=== PATIENT | male | born 1960 | race Caucasian/White ===

== ENCOUNTER 2017-08-14 16:48 | Emergency (ER) | payer MEDICARE, MEDICAID ==
[~2017-08-14] VITALS: Ht 182.9 cm; Wt 127.0 kg
[2017-08-14 16:50] VITALS: BP 155/97; PULSE 56; RESP 18; TEMP 97.8; O2SAT 96
--- NOTE | 2017-08-14 16:50 | NUR ---
Patient triaged and placed in waiting room. VSS and patient appears in no acute distress at this time. Accompanied by SELF, awaiting available bed, and MD notified of need for MSE.
--- NOTE | 2017-08-14 19:14 | NUR ---
Patient to [facility] for evaluation. Side rails up. Report given to Tess CLARK.
--- NOTE | 2017-08-14 19:30 | NUR ---
Patient AOx4, ambulatory, presents to ER with complaint of sore throat x3 days. Patient states he initially had fever episodes and chills. No further symptoms or complaints at this time.
--- NOTE | 2017-08-14 19:45 | NUR ---
ER MD Baldwin at bedside evaluating the patient
[2017-08-14] MEDS ORDERED: KETOROLAC TROMETHAMINE 60 MG/2 ML VIAL IM ONE (20:00)
[2017-08-14 20:48] VITALS: BP 135/84; PULSE 66; RESP 18; TEMP 97.8; O2SAT 97
--- NOTE | 2017-08-14 20:48 | NUR ---
Patient given written and verbal discharge instructions and verbalizes understanding. ER MD Baldwin discussed with patient the results and treatment provided. Patient in stable condition. ID arm band removed. Rx of prednisone & motrin given. Patient educated on pain management and to follow up with PMD. Pain Scale 0/10. Opportunity for questions provided and answered.
== END 2017-08-14 20:48 | disposition home or self-care (01) ==
LOC: SED 16:48
DX: J06.9 Acute upper respiratory infection, unspecified (principal); I25.2 Old myocardial infarction
CPT/HCPCS: 96372; 99283; J1885

== ENCOUNTER 2017-08-17 11:10 | Emergency (ER) | payer MEDICARE, MEDICAID ==
[~2017-08-17] VITALS: Ht 182.9 cm; Wt 129.3 kg
[2017-08-17 11:10] VITALS: BP 157/102; PULSE 88; RESP 20; TEMP 99; O2SAT 96
--- NOTE | 2017-08-17 11:10 | NUR ---
Patient to ER bed 7 to gown for evaluation. Side rails up. Report given to Nadya CLARK.
--- NOTE | 2017-08-17 11:15 | NUR ---
Pt was brought in by ALS for vomitting blood approx 30 mins ago. Pt states he has productive cough for about a week. Spitting up yellow, blood tinged sputum. Pt states he has chest wall pain 8/10. Pain with inspiration. Pain on palpation. Lung sounds rhonchi bilaterally. Pt states he is nauseous. Will continue to monitor via ekg monitor tech. No other injuries or complaints mentioned/noted.
--- NOTE | 2017-08-17 11:25 | NUR ---
MELINDA KELLEY AT BEDSIDE FOR EVAL.
[2017-08-17 11:46] LABS: BASOPHILS % (AUTO) 0.1 % (0.0-2.0); EOSINOPHILS # (AUTO) 0.1 K/uL (0.0-0.4); EOSINOPHILS % (AUTO) 1.8 % (0.0-4.0); HEMATOCRIT 38.6 % (36-54); HEMOGLOBIN 12.7 g/dL (14.0-18.0); LYMPHOCYTES % (AUTO) 12.2 % (20.5-51.5); MEAN CORPUSCULAR HEMOGLOBIN 27 pg (27-31); MEAN CORPUSCULAR HGB CONC 33 % (32-36); MEAN CORPUSCULAR VOLUME 83 fL (79.0-98.0); MONOCYTES # (AUTO) 0.3 K/uL (0.0-1.0); NEUTROPHILS # (AUTO) 6.8 K/uL (1.8-7.7); NEUTROPHILS % (AUTO) 81.9 % (40.0-70.0); PLATELET COUNT (AUTO) 208 K/uL (130-430); RED BLOOD CELL COUNT(AUTO) 4.65 MIL/uL (4.2-6.2); RED CELL DISTRIBUTION WIDTH 12.8 % (9.0-15.0); WHITE BLOOD COUNT (AUTO) 8.2 K/uL (4.8-10.8)
--- NOTE | 2017-08-17 11:55 | NUR ---
# 20 gauge angiocath placed to R hand. Use of asceptic technique. Opsite placed over site. Blood return noted. Flushed with 10 cc of normal saline. No evidence of infiltration noted. Patient tolerated well.
[2017-08-17 12:00] LABS: ANION GAP 9 (5-15); CALCIUM 8.8 mg/dL (8.4-11.0); CHLORIDE 103 mmol/L (98-107); CREATININE 1.04 mg/dL (0.55-1.30); GLUCOSE 347 mg/dL (70-99); POTASSIUM 4.1 mmol/L (3.5-5.1); SODIUM SERUM 139 mmol/L (136-145); UREA NITROGEN, BLOOD 14 mg/dL (8-21)
[2017-08-17 12:01] LABS: GFR AFRICAN AMERICAN 94 mL/min (>90)
[2017-08-17 12:03] LABS: PROTHROMBIN TIME 10.4 SECS (9.5-12.5)
[2017-08-17 12:08] LABS: ALCOHOL, BLOOD < 3 mg/dL (<10)
[2017-08-17 12:09] LABS: ALANINE AMINOTRANSFERASE 30 U/L (12-78); ALBUMIN 3.2 g/dL (3.4-4.8); ASPARTATE AMINOTRANSFERASE 16 U/L (10-37); TOTAL BILIRUBIN 0.4 mg/dL (0.0-1.0)
--- NOTE | 2017-08-17 12:15 | NUR ---
Pt accidently dislodged IV. # 20 gauge angiocath placed to L AC. Use of asceptic technique. Opsite placed over site. Blood return noted. Flushed with 10 cc of normal saline. No evidence of infiltration noted. Patient tolerated well.
[2017-08-17 12:30] LABS: BARBITURATE, URINE NEGATIVE (NEG <=200); BENZODIAZEPINE, URINE NEGATIVE (NEG <=150); CANNABINOID, URINE NEGATIVE (NEG <=50); COCAINE, URINE NEGATIVE (NEG <=150); METHAMPHETAMINES SCREEN,URINE POSITIVE (NEG <=500); OPIATE, URINE NEGATIVE (NEG <=100); PHENCYCLIDINE SCREEN,URINE NEGATIVE (NEG <=25); UR TRICYCLIC ANTIDEPRESSANTS NEGATIVE (NEG <=300); URINE AMPHETAMINE NEGATIVE (NEG <=500); URINE METHADONE NEGATIVE (NEG <=200); URINE OXYCODONE SCREEN NEGATIVE (NEG <=100); URINE PROPOXYPHENE SCREEN NEGATIVE (NEG <=300)
--- NOTE | 2017-08-17 13:00 | NUR ---
TO CT SCAN VIA [place].
[2017-08-17] MEDS ORDERED: IOHEXOL 100 ML IV ONE (13:01)
--- NOTE | 2017-08-17 13:20 | NUR ---
RETURNED TO BED [address] SR ON MONITOR. COUGHING UP GREEN SPUTUM. SATS 95 %. LUNGS WITH RHONCHI. ER MADE AWARE OF APIN 6-05/19 TO LEFT EAR AND FLANK.
--- NOTE | 2017-08-17 13:34 | NUR ---
ER MD PREFERS NOT OT LEAVE PAIN MEDICINE AT THIS TIME.
--- NOTE | 2017-08-17 13:45 | NUR ---
ER MD BACK IN TO DISCUSS TEST RESULTS WITH PT. QUESTIONS ANSWERED.
[2017-08-17 14:24] VITALS: BP 178/88; PULSE 90; RESP 28; TEMP 87.7; O2SAT 95
--- NOTE | 2017-08-17 14:29 | NUR ---
Patient given written and verbal discharge instructions and verbalizes understanding. ER MD discussed with patient the results and treatment provided. Patient in stable condition. ID arm band removed. IV catheter removed intact and dressing applied, no active bleeding. Rx of LEVAQUIN AND SUDAFED given. Patient educated on pain management and to follow up with PMD. Pain Scale . Opportunity for questions provided and answered. PT DISCHARGED HOME WITH NEPHEW. PT AMBULATED OUT OF ED. REFUSED WHEELCHAIR OFFERED.
== END 2017-08-17 14:24 | disposition home or self-care (01) ==
LOC: SED 11:10
DX: R04.2 Hemoptysis (principal); I25.2 Old myocardial infarction
CPT/HCPCS: 36415; 71010; 71260; 80053; 80307; 82550; 83880; 84145; 84484; 85025; 85379; 85610; 85730; 93005; 99285; G0482; Q9967

== ENCOUNTER 2018-05-17 17:56 | Emergency (ER) | payer MEDICARE, MEDICAID ==
[~2018-05-17] VITALS: Ht 182.9 cm; Wt 127.0 kg
[2018-05-17 18:04] VITALS: BP_SYST 143
[2018-05-17] MEDS ORDERED: KETOROLAC TROMETHAMINE 60 MG/2 ML VIAL IM ONE (18:15)
[2018-05-17] MEDS ORDERED: cefTRIAXone 1 GM VIAL IM ONE (19:00)
[2018-05-17 19:10] VITALS: BP_SYST 139
== END 2018-05-17 19:10 | disposition home or self-care (01) ==
LOC: SED 17:56
DX: L03.115 Cellulitis of right lower limb (principal); R03.0 Elevated blood-pressure reading, without diagnosis of hypertension; I25.2 Old myocardial infarction
CPT/HCPCS: 96372; 99284; J0696; J1885

== ENCOUNTER 2020-07-11 17:37 | Emergency (ER) | payer MEDICARE, MEDICAID ==
[~2020-07-11] VITALS: Ht 182.9 cm; Wt 122.5 kg
[2020-07-11 17:46] VITALS: BP_SYST 169
[2020-07-11] MEDS ORDERED: DIPH-TET-PERTUS Vaccine 0.5 ML VIAL (ADACEL) I.M. ONE (20:30)
[2020-07-11] MEDS ORDERED: CEPHALEXIN 500 MG CAPSULE PO ONE (20:30)
[2020-07-11] MEDS ORDERED: MORPHINE 4 MG/ML INJ. SYRINGE IM ONE (20:30)
[2020-07-11 20:37] LABS: PROTHROMBIN TIME 9.9 SECS (9.5-12.5)
[2020-07-11 20:45] LABS: CREATININE 1.09 mg/dL (0.55-1.30); POTASSIUM 3.8 mmol/L (3.5-5.1)
[2020-07-11 20:46] LABS: BASOPHILS % (AUTO) 0.3 % (0.0-2.0); EOSINOPHILS # (AUTO) 0.1 K/uL (0.0-0.4); EOSINOPHILS % (AUTO) 1.7 % (0.0-4.0); HEMATOCRIT 37.8 % (36-54); HEMOGLOBIN 12.4 g/dL (14.0-18.0); LYMPHOCYTES # (AUTO) 2.4 K/uL (1.0-5.5); MEAN CORPUSCULAR HEMOGLOBIN 28 pg (27-31); MEAN CORPUSCULAR HGB CONC 33 % (32-36); MEAN CORPUSCULAR VOLUME 86 fL (79.0-98.0); MONOCYTES # (AUTO) 0.8 K/uL (0.0-1.0); MONOCYTES % (AUTO) 10.2 % (1.7-9.3); NEUTROPHILS # (AUTO) 4.7 K/uL (1.8-7.7); NEUTROPHILS % (AUTO) 57.8 % (40.0-70.0); PLATELET COUNT (AUTO) 207 K/uL (130-430); RED BLOOD CELL COUNT(AUTO) 4.41 MIL/uL (4.2-6.2); RED CELL DISTRIBUTION WIDTH 13.3 % (9.0-15.0); WHITE BLOOD COUNT (AUTO) 8.1 K/uL (4.8-10.8)
[2020-07-11 20:50] LABS: ALBUMIN 3.1 g/dL (3.4-4.8); TOTAL BILIRUBIN 0.3 mg/dL (0.0-1.0)
[2020-07-12 00:43] VITALS: BP_SYST 143
[2020-07-12] MEDS ORDERED: BACITRACIN 1 GM OINT TP ONE (00:59)
== END 2020-07-12 00:43 | disposition home or self-care (01) ==
LOC: SED 17:37
DX: S61.210A Laceration without foreign body of right index finger without damage to nail, initial encounter (principal); M25.512 Pain in left shoulder; I25.2 Old myocardial infarction; W26.8XXA Contact with other sharp object(s), not elsewhere classified, initial encounter; Y93.89 Activity, other specified; Y92.89 Other specified places as the place of occurrence of the external cause; Y99.8 Other external cause status
CPT/HCPCS: 36415; 73030; 73060; 73140; 80053; 85025; 85610; 85730; 90471; 90715; 93005; 93971; 96372; 99285; J2270

== ENCOUNTER 2021-05-31 19:58 | Emergency (ER) | payer MEDICARE, MEDICAID ==
[~2021-05-31] VITALS: Ht 182.9 cm; Wt 120.2 kg
[2021-05-31 20:05] VITALS: BP_SYST 146
[2021-05-31] MEDS ORDERED: LIDOCAINE 1%, 20 ML MDV 20 ML ONE (21:26)
[2021-05-31] MEDS ORDERED: BACITRACIN 1 GM OINT TP ONE (21:30)
[2021-05-31] MEDS ORDERED: LIDOCAINE 1% 10 MG/ML, 20 ML MDV INJ ONE (21:30)
[2021-05-31] MEDS ORDERED: DIPH-TET-PERTUS Vaccine 0.5 ML VIAL (ADACEL) I.M. ONE (21:30)
[2021-05-31 21:42] LABS: BASOPHILS % (AUTO) 0.3 % (0.0-2.0); EOSINOPHILS # (AUTO) 0.2 K/uL (0.0-0.4); EOSINOPHILS % (AUTO) 2.6 % (0.0-4.0); HEMATOCRIT 37.8 % (36-54); HEMOGLOBIN 12.5 g/dL (14.0-18.0); LYMPHOCYTES # (AUTO) 2.2 K/uL (1.0-5.5); LYMPHOCYTES % (AUTO) 27.4 % (20.5-51.5); MEAN CORPUSCULAR HEMOGLOBIN 28 pg (27-31); MEAN CORPUSCULAR HGB CONC 33 % (32-36); MEAN CORPUSCULAR VOLUME 86 fL (79.0-98.0); MONOCYTES # (AUTO) 0.8 K/uL (0.0-1.0); MONOCYTES % (AUTO) 9.4 % (1.7-9.3); NEUTROPHILS # (AUTO) 4.9 K/uL (1.8-7.7); NEUTROPHILS % (AUTO) 60.3 % (40.0-70.0); PLATELET COUNT (AUTO) 220 K/uL (130-430); RED BLOOD CELL COUNT(AUTO) 4.42 MIL/uL (4.2-6.2); RED CELL DISTRIBUTION WIDTH 13.4 % (9.0-15.0); WHITE BLOOD COUNT (AUTO) 8.2 K/uL (4.8-10.8)
[2021-05-31 22:00] LABS: PROTHROMBIN TIME 10.4 SECS (9.5-12.5)
[2021-05-31 22:05] LABS: CALCIUM 8.6 mg/dL (8.4-11.0); CREATININE 0.88 mg/dL (0.55-1.30)
[2021-05-31 22:09] LABS: ALBUMIN 3.3 g/dL (3.4-4.8); TOTAL BILIRUBIN 0.5 mg/dL (0.0-1.0)
[2021-05-31] MEDS ORDERED: IBUP-1970 PO (23:57)
[2021-06-01 00:07] VITALS: BP_SYST 146
== END 2021-06-01 00:07 | disposition home or self-care (01) ==
LOC: SED 19:58
DX: S92.402A Displaced unspecified fracture of left great toe, initial encounter for closed fracture (principal); R10.9 Unspecified abdominal pain; I25.2 Old myocardial infarction; W20.8XXA Other cause of strike by thrown, projected or falling object, initial encounter; Y93.89 Activity, other specified; Y92.89 Other specified places as the place of occurrence of the external cause; Y99.8 Other external cause status
CPT/HCPCS: 11730; 36415; 73660; 74176; 76376; 80053; 82150; 83605; 83690; 84484; 85025; 85610; 85730; 86140; 90471; 90715; 99285; J2001